=== PATIENT | female | born 1980 | race Caucasian/White ===

== ENCOUNTER 2019-08-02 10:45 | Emergency (ER) | payer OTHER ==
[~2019-08-02] VITALS: Ht 157.5 cm; Wt 59.9 kg
[2019-08-02 10:57] VITALS: BP 112/75
--- NOTE | 2019-08-02 11:02 | NUR ---
HANDED ON URINE CUP. WAIT AT LOBBY.
--- NOTE | 2019-08-02 11:02 | NUR ---
Leonarda voss in ED - 08/02/19 at 1313 by [email or web address] HAND ON URINE CUP. WAIT AT LOBBY.
--- NOTE | 2019-08-02 11:47 | NUR ---
Patient ambulated to bed 3 with family. RN evaluating patient at bedside.
[2019-08-02] MEDS ORDERED: NACL 0.9% 1,000 ML IV ONE (12:05)
--- NOTE | 2019-08-02 12:09 | NUR ---
XRAY AT BEDSIDE
--- NOTE | 2019-08-02 12:30 | NUR ---
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 IVF started NS 1L bolus.
[2019-08-02 12:36] LABS: BASOPHILS % (AUTO) 1.2 % (0.0-2.0); EOSINOPHILS % (AUTO) 0.8 % (0.0-4.0); HEMATOCRIT 30.6 % (36-48); HEMOGLOBIN 9.1 g/dL (12.0-16.0); LYMPHOCYTES # (AUTO) 0.9 K/uL (2.5-16.5); LYMPHOCYTES % (AUTO) 28.5 % (20.5-51.1); MEAN CORPUSCULAR HEMOGLOBIN 21 pg (27-31); MEAN CORPUSCULAR HGB CONC 30 g/dL (33-37); MONOCYTES # (AUTO) 0.2 K/uL (0.8-1.0); MONOCYTES % (AUTO) 7.8 % (1.7-9.3); NEUTROPHILS # (AUTO) 1.9 K/uL (1.8-7.7); NEUTROPHILS % (AUTO) 61.7 % (42.2-75.2); PLATELET COUNT (AUTO) 362 K/uL (140-450); RED BLOOD CELL COUNT(AUTO) 4.38 MIL/uL (4.20-5.40); RED CELL DISTRIBUTION WIDTH 17.7 % (11.6-13.7); WHITE BLOOD COUNT (AUTO) 3.2 K/uL (4.8-10.8)
--- NOTE | 2019-08-02 12:47 | NUR ---
NADR, PAIN 0/10
--- NOTE | 2019-08-02 12:48 | NUR ---
PT C/O GENERALIZED WEAKNESS, DIZZINESS WITH STANDING, AND NAUSEA X 1 WEEK. PT REFERRED FROM CLINIC. PT STATES SHE WAS DIAGNOSED WITH FLU 1 WEEK AGO BY HER PCP AND WAS GIVEN ANTIBIOTICS AND PAIN MEDICATIONS. PT REPORTS NOT EATING FOR 3 DAYS. PT DENIES PAIN. PT IS AWAKE AND ALERT, AMBULATORY WITH ASSISTANCE. MED HX: GALL BLADDER REMOVAL
[2019-08-02 12:56] LABS: ALBUMIN 3.9 g/dL (3.4-5.0); ANION GAP 9.9 (8-16); CARBON DIOXIDE 30.2 mmol/L (21-32); CREATININE 0.6 mg/dL (0.6-1.3); POTASSIUM 3.1 mmol/L (3.5-5.1); TOTAL BILIRUBIN 0.2 mg/dL (0.0-1.0)
--- NOTE | 2019-08-02 13:00 | NUR ---
REPORT GIVEN TO FATIMAH CASTELLANOS
[2019-08-02 14:00] VITALS: BP 106/54
--- NOTE | 2019-08-02 14:00 | NUR ---
Patient discharged with v/s stable. Written and verbal after care instructions given and explained. Patient alert, oriented and verbalized understanding of instructions. Ambulatory with steady gait. All questions addressed prior to discharge. ID band removed. Patient advised to follow up with PMD. Rx of ZOFRAN, IBUPROFEN given. Patient educated on indication of medication including possible reaction and side effects. Opportunity to ask questions provided and answered.
== END 2019-08-02 14:00 | disposition home or self-care (01) ==
LOC: MED 10:45
DX: R53.1 Weakness (principal); R11.2 Nausea with vomiting, unspecified; R42 Dizziness and giddiness; R63.0 Anorexia; Z98.890 Other specified postprocedural states
CPT/HCPCS: 36415; 71045; 80053; 84702; 85025; 96360; 99284; J7030; Q0092